=== PATIENT | male | born 1985 | race Caucasian/White ===

== ENCOUNTER 2017-09-24 14:30 | Emergency (ER) | payer BC ==
[2017-09-24 17:52] VITALS: BP 140/100
== END 2017-09-24 17:52 | disposition home or self-care (01) ==
LOC: ED 14:30
DX: S02.2XXA Fracture of nasal bones, initial encounter for closed fracture (principal); M25.571 Pain in right ankle and joints of right foot; Y04.8XXA Assault by other bodily force, initial encounter; Y93.89 Activity, other specified; Y92.89 Other specified places as the place of occurrence of the external cause; Y99.8 Other external cause status
CPT/HCPCS: 90715